=== PATIENT | female | born 2005 | race Hispanic/Latino ===

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

== ENCOUNTER 2023-03-31 07:42 | Observation (INO) | payer MEDICAID ==
[~2023-03-31] VITALS: Ht 144.8 cm; Wt 61.2 kg
[2023-03-31 07:46] VITALS: BP 130/74
[2023-03-31 08:23] LABS: APPEARANCE,URINE TURBID (CLEAR); BILIRUBIN,URINE NEGATIVE (NEGATIVE); COLOR,URINE YELLOW (YELLOW); GLUCOSE, URINE (UA) NEGATIVE (NEGATIVE); KETONES,URINE NEGATIVE (NEGATIVE); LEUKOCYTE ESTERASE ,URINE LARGE Leu/uL (NEGATIVE); NITRATE,URINE NEGATIVE (NEGATIVE); OCCULT BLOOD,URINE MODERATE (NEGATIVE); PROTEIN,URINE 100 mg/dL (NEGATIVE); UROBILINOGEN,URINE 0.2 mg/dL (0.2-1.0)
[2023-03-31 08:30] LABS: BACTERIA,URINE Moderate /HPF (None Seen); SQUAMOUS EPITHELIAL CELL,UR Rare /HPF (0-2); TRANSITIONAL EPI CELLS,URINE Rare /HPF (None Seen); WBC,URINE >100 /HPF (0-1)
[2023-03-31] MEDS ORDERED: CEFTRIAXONE 1G VIAL IVPB ONE (09:30)
[2023-03-31] MEDS ORDERED: LACTATED RINGERS 1000ML IV PRN (09:30)
[2023-03-31] MEDS ORDERED: ACETAMINOPHEN 500 MG TABLET PO ONE (09:30)
== END 2023-03-31 10:25 | disposition home or self-care (01) ==
LOC: EDH 07:42 → LDH 07:43
PROVIDERS: ADMIT Obstetrics & Gynecology; ATTEND Obstetrics & Gynecology
DX: O26.892 Other specified pregnancy related conditions, second trimester (principal); R10.30 Lower abdominal pain, unspecified; R30.0 Dysuria; O26.852 Spotting complicating pregnancy, second trimester; O99.891 Other specified diseases and conditions complicating pregnancy; M54.50 Low back pain, unspecified; Z3A.26 26 weeks gestation of pregnancy
CPT/HCPCS: 96374; 96361; 87077; 87088; 87186; 81001; G0378 ×2; G0379; J7120 ×2; J0696; 96365